=== PATIENT | male | born 1990 | race Hispanic/Latino ===

== ENCOUNTER 2022-05-01 11:17 | Emergency (ER) | payer SELFPAY ==
[~2022-05-01] VITALS: Ht 170.2 cm; Wt 99.8 kg
--- OUTSIDE RECORDS SUMMARY | 2022-05-01 11:18 | XMS ---
PreManage Notification: JOVANA FLEMING [employer] Events No recent Security Events currently on file CRITERIA MET - [facility] - 2 Visits in 30 Days CARE PROVIDERS There are no care providers on record at this time. [facility] has no Care Guidelines for this patient. [facility] (12 MO.) [facility] NOTE: Visits indicate total known visits. ED/C VISIT TRACKING (12 MO.) 05/01/2022 11:[address] [facility] TYPE: Emergency COMPLAINT: - MEDICAL CLEARANCE 04/29/2022 12:[address] 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
== END 2022-05-02 13:05 | disposition home or self-care (01) ==
LOC: ED 11:17
DX: Z00.8 Encounter for other general examination (principal); Z20.822 Contact with and (suspected) exposure to COVID-19
CPT/HCPCS: 36415; 80053; 81001; 84443; 85025; 87502; 96360; 96361; 99284-25; C9803; G0480; J1630; J2060; J7030; U0003